=== PATIENT | female | born 1960 | race Hispanic/Latino ===

== ENCOUNTER 2021-11-13 03:49 | Observation (INO) | payer SELFPAY ==
[2021-11-13 04:37] LABS: #Lymphocytes 2.4 thou/uL (1.20-3.40); #Monocytes 0.9 thou/uL (0.11-0.59); #Neutrophils 12.3 thou/uL (1.40-6.50); %Basophils 0.1 % (0.0-1.0); %Eosinophils 0.2 % (0.0-10.0); %Lymphocytes 15.2 % (21.0-51.0); %Neutrophils 78.5 % (42.0-75.0); Hemoglobin 12.7 g/dL (12.0-16.0); Mean Corpuscular HGB CONC 33.1 g/dL (32.0-36.0); Mean Corpuscular Hemoglobin 29.8 pg (27.0-31.0); Mean Corpuscular Volume 90.2 fL (78.0-98.0); Mean Platelet Volume 7.4 fL (7.4-10.4); Platelet Count 224 thou/uL (130-400); RBC Distribution Width 12.1 % (11.5-14.5); Red Blood Cell (RBC) Count 4.25 mill/uL (4.20-5.40); White Blood Cell (WBC) Count 15.6 thou/uL (4.8-10.8)
[2021-11-13 04:59] LABS: ALT (SGPT) 11 U/L (8-55); AST (SGOT) 13 U/L (5-34); Albumin 3.9 g/dL (3.4-4.8); Alkaline Phosphatase 87 U/L (40-110); Anion Gap 13 mmol/L (10-20); BUN (Urea Nitrogen) 25 mg/dL (9.8-20.1); Bilirubin, Total 0.6 mg/dL (0.2-1.2); Calc. Creatinine Clearance 0 mL/min (70-130); Calcium 9.9 mg/dL (7.8-10.44); Carbon Dioxide 25 mmol/L (23-31); Chloride 100 mmol/L (98-107); Estimated GFR 73; Globulin 3.6 g/dL (2.4-3.5); Glucose 178 mg/dL (80-115); Potassium 3.9 mmol/L (3.5-5.1); Protein, Total 7.5 g/dL (5.8-8.1); Sodium 134 mmol/L (136-145)
[2021-11-13] MEDS ORDERED: Morphine 4 MG/ML VIAL ONE (05:54)
[2021-11-13] MEDS ORDERED: Ondansetron PF 4 MG/2 ML Vial ONE ×2 (05:54→11:45)
[2021-11-13] MEDS ORDERED: Piperacillin/Tazobactam 3.375 GM VIAL ONE (07:04)
[2021-11-13 07:12] LABS: Bilirubin Negative (Negative); Blood, Urine Negative (Negative); Clarity Clear (Clear); Glucose, Urine (Dipstick) Normal (Negative); Ketone, Urine Negative (Negative); Leukocyte 75 Leu/uL (Negative); Nitrite Negative (Negative); Protein, Urine (Dipstick) 200 mg/dL (Neg-Trace); Specific Gravity, Urine 1.034 (1.002-1.036); Squamous Epithelial None Seen HPF (0-3); Urobilinogen Normal mg/dL (Less than 2); WBC/HPF 21-50 HPF (0-3)
[2021-11-13 07:20] LABS: Bacteria/HPF 2+ HPF (None Seen)
[2021-11-13] MEDS ORDERED: ISOVUE-370 76%-LOCM 1 ML ONE (08:00)
[2021-11-13 10:25] LABS: SARS-CoV-2 NAA Rapid Test Not Detected (NotDetected)
[2021-11-13] MEDS ORDERED: fentaNYL Citrate/PF 100 MCG/2 ML SYRINGE ONE (10:56)
[2021-11-13] MEDS ORDERED: Midazolam HCl 2 mg/2 ml Vial ONE (10:56)
[2021-11-13] MEDS ORDERED: Bupivacaine 0.25% HCL 30 ML VIAL ONE (11:09)
[2021-11-13] MEDS ORDERED: EPINEPHrine 1 MG/ML AMP ONE (11:09)
[2021-11-13] MEDS ORDERED: cefOXitin 2 GM VIAL ONE (11:31)
[2021-11-13] MEDS ORDERED: Sodium Chloride 0.9% 100 ML ONE (11:31)
[2021-11-13] MEDS ORDERED: Rocuronium Bromide 10 MG/ML (10ML VIAL) ONE (11:45)
[2021-11-13] MEDS ORDERED: Lidocaine 1% PF 5 ML VIAL ONE (11:45)
[2021-11-13] MEDS ORDERED: PROPOFOL 200 MG/20 ML VIAL ONE (11:45)
[2021-11-13] MEDS ORDERED: Phenylephrine 10 MG/ML VIAL ONE (11:45)
[2021-11-13] MEDS ORDERED: Dexamethasone 20 MG/5 ML VIAL ONE (11:45)
[2021-11-13] MEDS ORDERED: Promethazine HCl 25 MG/ML VIAL IVPB PRN (13:56)
[2021-11-13] MEDS ORDERED: Promethazine HCl 25 MG/ML VIAL IM PRN ×2 (13:56→14:06)
[2021-11-13] MEDS ORDERED: Ondansetron HCl/PF 4 MG/2 ML Vial IVP PRN (13:56)
[2021-11-13] MEDS ORDERED: Ondansetron PF 4 MG/2 ML Vial IVP PRN (14:06)
[2021-11-13] MEDS ORDERED: Insulin Regular 300 UNITS/3 ML VIAL SC PRN (14:06)
[2021-11-13] MEDS ORDERED: hydrALAZINE 20 MG/ML VIAL SLOW IVP PRN (14:06)
[2021-11-13] MEDS ORDERED: traMADol HCl 50 MG TAB PO PRN (14:08)
[2021-11-13] MEDS ORDERED: Sodium Chloride 0.9% 1,000 ML IV SCH ×2 (14:15→20:30)
[2021-11-13] MEDS ORDERED: Fentanyl 100 MCG/2 ML VIAL ONE (14:52)
[2021-11-13] MEDS ORDERED: Ibuprofen 800 MG TAB PO PRN (18:19)
[2021-11-13] MEDS ORDERED: Acetaminophen 500 MG TAB PO SCH (18:30)
[2021-11-13] MEDS ORDERED: traMADol HCl 50 MG TAB PO SCH (18:30)
[2021-11-13] MEDS: Potassium Chloride 20 MEQ in Lactated Ringer's 1,000 ML IV SCH ×2 (19:30→19:32)
[2021-11-13] MEDS: Senokot S 8.6-50 MG TAB PO SCH (20:40)
[2021-11-13] MEDS ORDERED: Acetaminophen 325 MG TAB PO SCH (23:59)
[2021-11-13] MEDS: traMADol HCl 50 MG TAB PO SCH (23:59)
[2021-11-14 05:23] LABS: #Lymphocytes 1.9 thou/uL (1.20-3.40); #Monocytes 0.8 thou/uL (0.11-0.59); #Neutrophils 7.9 thou/uL (1.40-6.50); %Basophils 0.2 % (0.0-1.0); %Eosinophils 0.2 % (0.0-10.0); %Lymphocytes 17.4 % (21.0-51.0); %Monocytes 7.9 % (0.0-10.0); %Neutrophils 74.3 % (42.0-75.0); Hemoglobin 10.9 g/dL (12.0-16.0); Mean Corpuscular HGB CONC 32.8 g/dL (32.0-36.0); Mean Corpuscular Hemoglobin 29.8 pg (27.0-31.0); Mean Corpuscular Volume 90.8 fL (78.0-98.0); Mean Platelet Volume 7.7 fL (7.4-10.4); Platelet Count 169 thou/uL (130-400); RBC Distribution Width 12.1 % (11.5-14.5); Red Blood Cell (RBC) Count 3.67 mill/uL (4.20-5.40); White Blood Cell (WBC) Count 10.7 thou/uL (4.8-10.8)
[2021-11-14 05:50] LABS: Anion Gap 12 mmol/L (10-20); BUN (Urea Nitrogen) 13 mg/dL (9.8-20.1); Calc. Creatinine Clearance 0 mL/min (70-130); Calcium 8.8 mg/dL (7.8-10.44); Carbon Dioxide 23 mmol/L (23-31); Chloride 106 mmol/L (98-107); Estimated GFR 94; Glucose 112 mg/dL (80-115); Potassium 3.9 mmol/L (3.5-5.1); Sodium 137 mmol/L (136-145)
[2021-11-14] MEDS: traMADol HCl 50 MG TAB PO SCH ×2 (05:51→14:07)
[2021-11-14] MEDS: Acetaminophen 500 MG TAB PO SCH ×3 (05:51→14:08)
[2021-11-14 07:29] VITALS: BMI 33.3
[2021-11-14] MEDS ORDERED: Polyethylene Glycol 3350 17 GM Packet PO SCH (09:00)
[2021-11-14] MEDS: Senokot S 8.6-50 MG TAB PO SCH (09:00)
[2021-11-14] MEDS ORDERED: Enoxaparin Sodium 40 MG/0.4 ML SYRINGE SC SCH (09:00)
[2021-11-14 09:26] LABS: ALT (SGPT) 41 U/L (8-55); AST (SGOT) 36 U/L (5-34); Alkaline Phosphatase 68 U/L (40-110); Bilirubin, Direct 0.3 mg/dL (0.1-0.3); Bilirubin, Total 0.6 mg/dL (0.2-1.2)
[2021-11-14 12:15] VITALS: BP 144/96; TEMP 97.5
== END 2021-11-14 16:32 | disposition home or self-care (01) ==
LOC: ERS 03:49 → SDC 10:57 → SURG B 17:36
PROVIDERS: ADMIT Surgery; ATTEND Surgery
PROC: 0FT44ZZ Resection of Gallbladder, Percutaneous Endoscopic Approach (ICD-10-PCS; principal; 2021-11-14)
DX: K80.00 Calculus of gallbladder with acute cholecystitis without obstruction (principal); K82.A2 Perforation of gallbladder in cholecystitis; K66.0 Peritoneal adhesions (postprocedural) (postinfection); E11.40 Type 2 diabetes mellitus with diabetic neuropathy, unspecified; E78.5 Hyperlipidemia, unspecified; I10 Essential (primary) hypertension; Z20.822 Contact with and (suspected) exposure to COVID-19; Z79.84 Long term (current) use of oral hypoglycemic drugs; Z79.899 Other long term (current) drug therapy; Z88.8 Allergy status to other drugs, medicaments and biological substances; Z86.73 Personal history of transient ischemic attack (TIA), and cerebral infarction without residual deficits
CPT/HCPCS: 36415; 36416; 74177; 76705; 80048; 80053; 81003; 81015; 83605; 83690; 85025; 87040; 88304; 93005; 96361; 96365; 96372; 96374; 96375; C1713; G0378; J0171; J0694; J1100; J1650; J2250; J2270; J2370; J2405; J2543; J2704; J3010; J3480; J3490; J7050; J7120; Q9966; S0020; U0002